=== PATIENT | male | born 1985 | race Hispanic/Latino ===

== ENCOUNTER 2018-10-29 13:25 | Emergency (ER) | payer SELFPAY | END 2018-10-29 14:21 | disposition home or self-care (01) | LOC: ERS 13:25 | DX: J06.9 Acute upper respiratory infection, unspecified (principal); H92.03 Otalgia, bilateral | CPT/HCPCS: 99282 ==

== ENCOUNTER 2020-01-03 01:09 | Emergency (ER) | payer SELFPAY ==
[2020-01-03] MEDS ORDERED: Acetaminophen 500 MG TAB ONE (03:36)
[2020-01-03] MEDS ORDERED: Dexamethasone 10 MG/ML VIAL ONE ×2 (03:36)
== END 2020-01-03 03:55 | disposition home or self-care (01) ==
LOC: ERS 01:09
DX: J02.9 Acute pharyngitis, unspecified (principal)
CPT/HCPCS: 87081; 87430; 99283; J1100